=== PATIENT | female | born 1965 | race Caucasian/White ===

== ENCOUNTER 2019-12-24 18:20 | Emergency (ER) | payer SELFPAY ==
[~2019-12-24] VITALS: Ht 152.4 cm; Wt 90.9 kg
[~2019-12-24 18:20] MED LIST: ALBUTEROL INH; AMIT25TA PO; ATOR10TA9 PO; CARI350T14 PO; CLON0.12 PO; CLONIDINE PO; DIVA-61 PO; ECON15CR3 TP; ENAL10TA PO; ENALAPRIL PO; GABA600T7 PO; IBUPROFEN PO; MORPHINE PO; OMEP40CA42 PO; ONDA4TAB7 PO; OXYC1TAB7 PO; SENN1TAB35 PO; SERT100T PO; SOMA PO; ZOLOFT PO; [UNRECOGNIZED DRUG - OTHER] PO
[2019-12-24 18:35] VITALS: BP 182/102
--- NOTE | 2019-12-24 21:07 | NUR ---
PT NOT IN LOBBX AT THIS TIME X 1
--- NOTE | 2019-12-24 21:22 | NUR ---
NIL X 2
--- NOTE | 2019-12-24 21:33 | NUR ---
NIL X 3
== END 2019-12-24 21:36 | disposition left against medical advice (07) ==
LOC: ED 19:20
DX: R60.0 Localized edema (principal); M79.672 Pain in left foot; M79.671 Pain in right foot
CPT/HCPCS: 71045; 93970; 99284

== ENCOUNTER 2020-07-09 22:52 | Inpatient (IN) | payer MEDICAID ==
[~2020-07-09] VITALS: Ht 152.4 cm; Wt 90.1 kg
[~2020-07-09 22:52] MED LIST changes: -ENAL10TA PO; +ENAL10TA9 PO
--- NOTE | 2020-07-09 23:47 | NUR ---
ERP TO BEDSIDE.
--- NOTE | 2020-07-09 23:48 | NUR ---
PT TO ROOM AT [id number]
[2020-07-09 23:51] LABS: BASOPHILS # (AUTO) 0.03 x10^3/uL (0-0.1); BASOPHILS % (AUTO) 0 % (0-1); EOSINOPHILS # (AUTO) 0.13 x10^3/uL (0-0.4); EOSINOPHILS % (AUTO) 1 % (1-7); LYMPHOCYTES % (AUTO) 22 % (22-44); MD NO; MEAN CORPUSCULAR HEMOGLOBIN 27.1 pg (27.0-34.8); MEAN CORPUSCULAR HGB CONC 32.5 g/dL (32.4-35.8); MEAN CORPUSCULAR VOLUME 83.3 fL (80-100); MEAN PLATELET VOLUME 8.2 fL (7.4-10.4); MONOCYTES # (AUTO) 0.63 x10^3/uL (0.2-0.8); MONOCYTES % (AUTO) 7 % (2-9); NEUTROPHILS # (AUTO) 6.53 x10^3/uL (1.8-6.8); NEUTROPHILS % (AUTO) 70 % (42-75); PLATELET COUNT 361 x10^3/uL (130-400); RED BLOOD COUNT 5.02 x10^6/uL (3.82-5.3); RED CELL DISTRIBUTION WIDTH 15.3 % (9.6-15.2)
[2020-07-10] MEDS ORDERED: SODIUM CHLORIDE FLUSH 10ML SYR IVF ONE
[2020-07-10] MEDS ORDERED: ONDANSETRON 2MG/ML, 2ML IVPush ONE
[2020-07-10 00:02] LABS: ALANINE AMINOTRANSFERASE 21 U/L (12-78); ALBUMIN 3.6 g/dL (3.4-5.0); ANION GAP 6 mmol/L (5-15); CALCIUM 9.6 mg/dL (8.5-10.1); CHLORIDE 108 mmol/L (98-107); CREATININE 0.91 mg/dL (0.55-1.02)
[2020-07-10 00:05] LABS: ALKALINE PHOSPHATASE 96 U/L (45-117); BILIRUBIN,TOTAL 0.4 mg/dL (0.2-1.0); TOTAL PROTEIN 7.9 g/dL (6.4-8.2)
--- NOTE | 2020-07-10 00:42 | NUR ---
WORKING TO OBTAIN IV ACCESS.
[2020-07-10 00:46] LABS: TROPONIN I 0.068 ng/mL (0.000-0.045)
[2020-07-10 00:48] LABS: HCT (SEDRATE) 41.9 % (34.6-47.8)
[2020-07-10] MEDS ORDERED: MORPHINE SULFATE 4 MG/ML, 1ML ONE (01:01)
[2020-07-10] MEDS ORDERED: ONDANSETRON 2MG/ML, 2ML ONE (01:01)
--- NOTE | 2020-07-10 01:19 | NUR ---
LATE ENTRY NOTE DUE TO PT CARE: RADHA, RN AND ALICE, RN WELL THIS RN AT BEDSIDE TO ASSESS PORT ACCESS AND IV ACCESS. PT DOES NOT KNOW LAST TIME HER IMPLANTED PORT WAS ACCESSED. THIS RN LOOKED UP POLICIES AND PROCEDURES FOR ACCESSING IMPLANTED PORTS. PT'S PORT ACCESSED PER POLICY. PORT FLUSHED BUT DID NOT GIVE BLOOD RETURN. PT STATED SHE COULD TASTE THE SALINE. SKIN AROUND PORT WAS FOUND TO BE COLD. PORT ACCESS D/C'D AFTER MULTIPLE RNS ASSESSED. ERP MADE AWARE OF DELAY FOR CT UNTIL IV ACCESS CAN BE OBTAINED. ULTRA SOUND AT BEDSIDE IN ATTEMPT TO START US IV. THIS RN ASSESSED FOR EJ ACCESS WELL.
--- NOTE | 2020-07-10 01:38 | NUR ---
PT AMBULATORY TO BATHROOM WITH STANDBY ASSISST.
--- NOTE | 2020-07-10 01:50 | NUR ---
CT DELAY- WAITING FOR NEW IV.
--- NOTE | 2020-07-10 01:58 | NUR ---
US IV ACCESS OBTAINED BY LISA JENKINS. MEDICATION ADMINISTERED VIA IV, IV INFILTRATED. LISA ANTONY AT BEDSIDE WORKING TO OBTAIN IV ACCESS. ERP MADE AWARE.
[2020-07-10] MEDS ORDERED: MORPHINE SULFATE 4 MG/ML, 1ML IVPush PRN ×2 (02:30)
[2020-07-10] MEDS ORDERED: ONDANSETRON 2MG/ML, 2ML IVPush PRN (02:30)
--- NOTE | 2020-07-10 02:38 | NUR ---
REPORT TO FLOOR RN.
[2020-07-10] MEDS ORDERED: ASPIRIN 81 MG TABLET CHEW PO ONE (03:00)
[2020-07-10 03:23] VITALS: BP 129/77
[2020-07-10] MEDS ORDERED: morphine SULFATE 10 MG/ML, 1ML IVPush PRN (03:30)
[2020-07-10] MEDS ORDERED: hydrALAzine 20 MG/ML, 1ML IVPush PRN (03:30)
[2020-07-10] MEDS: ENOXAPARIN 40 MG/0.4 ML SQ SCH (04:00)
[2020-07-10] MEDS: ACETAMINOPHEN 325 MG TABLET PO PRN ×2 (04:00→21:45)
[2020-07-10 05:45] LABS: CHOLESTEROL, TOTAL 140 mg/dL (140-239); HDL CHOL % 33 % (28-40); HDL CHOLESTEROL (DIRECT) 46 mg/dL (40-60); LDL CHOLESTEROL,CALCULATED 82 mg/dL (54-169); LDL/HDL RATIO 1.8 (0.5-3.0); TRIGLYCERIDES 60 mg/dL (50-200); VLDL CHOLESTEROL 12 mg/dL (0-25)
[2020-07-10] MEDS: ASPIRIN 325 MG TABLET EC PO SCH (06:00)
[2020-07-10 06:27] VITALS: BP 104/69
[2020-07-10 06:42] LABS: AMPHETAMINE SCREEN, URINE Positive (Negative); BARBITURATE SCREEN, URINE Negative (Negative); BENZODIAZEPINE SCREEN, URINE Negative (Negative); CANNABINOID SCREEN, URINE Negative (Negative); COCAINE SCREEN, URINE Negative (Negative); METHADONE SCREEN, URINE Negative (Negative); OPIATE SCREEN, URINE Positive (Negative)
[2020-07-10] MEDS: SENNA/DOCUSATE TABLET PO SCH (08:24)
[2020-07-10] MEDS: TOPIRAMATE 100 MG TABLET PO SCH (08:24)
[2020-07-10] MEDS: ONDANSETRON 2MG/ML, 2ML IVPush PRN (08:58)
[2020-07-10] MEDS ORDERED: FURO20TA3 PO (10:49)
[2020-07-10] MEDS ORDERED: CETI10TA32 PO (10:49)
[2020-07-10] MEDS ORDERED: CEPH500T PO (10:49)
[2020-07-10] MEDS ORDERED: MEDR10TA3 PO (10:49)
[2020-07-10] MEDS ORDERED: DOCU100C33 PO (10:49)
[2020-07-10] MEDS ORDERED: POTA20PA25 PO (10:49)
[2020-07-10] MEDS ORDERED: PREG75CA PO (10:49)
[2020-07-10] MEDS ORDERED: VALA500T8 PO (10:49)
[2020-07-10] MEDS ORDERED: DAPA10TA PO (10:49)
[2020-07-10] MEDS ORDERED: TOPI100C6 PO (10:49)
[2020-07-10] MEDS ORDERED: BUDE10.2 INH (10:49)
[2020-07-10 12:15] LABS: TROPONIN I 0.054 ng/mL (0.000-0.045)
[2020-07-10 13:03] VITALS: BP 120/83
[2020-07-10 20:03] VITALS: BP 129/87
[2020-07-10] MEDS ORDERED: BUTALB/APAP/CAFFEINE 50MG/325MG/40MG PO PRN (23:00)
[2020-07-11] MEDS: ENOXAPARIN 40 MG/0.4 ML SQ SCH (02:40)
[2020-07-11 02:45] VITALS: BP 123/77
[2020-07-11 05:14] LABS: BASOPHILS # (AUTO) 0.03 x10^3/uL (0-0.1); BASOPHILS % (AUTO) 1 % (0-1); EOSINOPHILS # (AUTO) 0.13 x10^3/uL (0-0.4); EOSINOPHILS % (AUTO) 2 % (1-7); LYMPHOCYTES # (AUTO) 1.59 x10^3/uL (1-3.4); LYMPHOCYTES % (AUTO) 29 % (22-44); MD NO; MEAN CORPUSCULAR HEMOGLOBIN 27.3 pg (27.0-34.8); MEAN CORPUSCULAR HGB CONC 31.9 g/dL (32.4-35.8); MEAN CORPUSCULAR VOLUME 85.5 fL (80-100); MEAN PLATELET VOLUME 8.4 fL (7.4-10.4); MONOCYTES # (AUTO) 0.37 x10^3/uL (0.2-0.8); MONOCYTES % (AUTO) 7 % (2-9); NEUTROPHILS # (AUTO) 3.47 x10^3/uL (1.8-6.8); NEUTROPHILS % (AUTO) 62 % (42-75); PLATELET COUNT 256 x10^3/uL (130-400); RED BLOOD COUNT 4.41 x10^6/uL (3.82-5.3); RED CELL DISTRIBUTION WIDTH 15.2 % (9.6-15.2)
[2020-07-11 05:32] LABS: CHLORIDE 109 mmol/L (98-107)
[2020-07-11 05:37] LABS: ANION GAP 9 mmol/L (5-15); CALCIUM 8.8 mg/dL (8.5-10.1); CREATININE 0.77 mg/dL (0.55-1.02)
[2020-07-11] MEDS: ASPIRIN 325 MG TABLET EC PO SCH (05:41)
[2020-07-11] MEDS ORDERED: POLYETHYLENE GLYCOL 17 GM PACKET PO ONE (09:00)
[2020-07-11] MEDS: CEFDINIR 300 MG CAPSULE PO SCH ×2 (09:26→20:54)
[2020-07-11] MEDS: DOXYCYCLINE 100MG CAP PO SCH ×2 (09:26→20:54)
[2020-07-11] MEDS: METOCLOPRAMIDE 5 MG/ML, 2ML IVPush SCH ×3 (09:26→20:54)
[2020-07-11] MEDS: FUROSEMIDE 40 MG TABLET PO SCH ×2 (09:27→17:30)
[2020-07-11] MEDS: ENALAPRIL 10 MG TABLET PO SCH (09:27)
[2020-07-11] MEDS: SENNA/DOCUSATE TABLET PO SCH (09:27)
[2020-07-11] MEDS: CARISOPRODOL 350 MG TABLET PO SCH ×2 (09:27→20:54)
[2020-07-11] MEDS: VALACYCLOVIR 500MG TABLET PO SCH ×2 (09:27→20:54)
[2020-07-11] MEDS: SERTRALINE 100MG TABLET PO SCH (09:28)
[2020-07-11] MEDS: PREGABALIN 75 MG CAPSULE PO SCH (09:28)
[2020-07-11] MEDS: TOPIRAMATE 100 MG TABLET PO SCH (09:28)
[2020-07-11 09:30] VITALS: BP 138/75
[2020-07-11] MEDS: ONDANSETRON 2MG/ML, 2ML IVPush PRN (09:36)
[2020-07-11 14:00] VITALS: BP 101/60
[2020-07-11 19:57] VITALS: BP 117/64
[2020-07-11] MEDS: AMITRIPTYLINE 25 MG TABLET PO SCH (20:52)
[2020-07-11] MEDS: DIVALPROEX 500 MG TABLET.DR PO SCH (20:54)
[2020-07-11] MEDS: ATORVASTATIN 10 MG TABLET PO SCH (20:54)
[2020-07-12 02:36] VITALS: BP 125/66
[2020-07-12] MEDS: ENOXAPARIN 40 MG/0.4 ML SQ SCH (03:04)
[2020-07-12] MEDS: METOCLOPRAMIDE 5 MG/ML, 2ML IVPush SCH ×4 (03:04→20:45)
[2020-07-12] MEDS: ASPIRIN 325 MG TABLET EC PO SCH (05:50)
[2020-07-12 07:24] LABS: ANION GAP 7 mmol/L (5-15); CALCIUM 8.5 mg/dL (8.5-10.1); CHLORIDE 107 mmol/L (98-107); CREATININE 0.99 mg/dL (0.55-1.02)
[2020-07-12 07:54] LABS: MEAN CORPUSCULAR HEMOGLOBIN 26.8 pg (27.0-34.8); MEAN CORPUSCULAR HGB CONC 32.1 g/dL (32.4-35.8); MEAN CORPUSCULAR VOLUME 83.6 fL (80-100); MEAN PLATELET VOLUME 9.1 fL (7.4-10.4); PLATELET COUNT 308 x10^3/uL (130-400); RED CELL DISTRIBUTION WIDTH 15.1 % (9.6-15.2)
[2020-07-12 08:00] VITALS: BP 104/56
[2020-07-12 08:06] LABS: BASOPHILS # (AUTO) 0.04 x10^3/uL (0-0.1); BASOPHILS % (AUTO) 0 % (0-1); EOSINOPHILS # (AUTO) 0.07 x10^3/uL (0-0.4); EOSINOPHILS % (AUTO) 1 % (1-7); LYMPHOCYTES # (AUTO) 1.67 x10^3/uL (1-3.4); LYMPHOCYTES % (AUTO) 14 % (22-44); MD SCAN; MONOCYTES # (AUTO) 0.44 x10^3/uL (0.2-0.8); MONOCYTES % (AUTO) 4 % (2-9); NEUTROPHILS # (AUTO) 9.62 x10^3/uL (1.8-6.8); NEUTROPHILS % (AUTO) 81 % (42-75)
[2020-07-12] MEDS: METOPROLOL TARTRATE 25 MG TAB PO SCH (08:41)
[2020-07-12] MEDS: TOPIRAMATE 100 MG TABLET PO SCH (08:42)
[2020-07-12] MEDS: VALACYCLOVIR 500MG TABLET PO SCH ×2 (08:42→20:44)
[2020-07-12] MEDS: DOXYCYCLINE 100MG CAP PO SCH ×2 (08:42→20:44)
[2020-07-12] MEDS: CEFDINIR 300 MG CAPSULE PO SCH ×2 (08:42→20:44)
[2020-07-12] MEDS: ENALAPRIL 10 MG TABLET PO SCH (08:42)
[2020-07-12] MEDS: SERTRALINE 100MG TABLET PO SCH (08:42)
[2020-07-12] MEDS: FUROSEMIDE 20 MG TABLET PO SCH ×2 (08:42→17:31)
[2020-07-12] MEDS: CARISOPRODOL 350 MG TABLET PO SCH ×2 (08:42→20:44)
[2020-07-12] MEDS: PREGABALIN 75 MG CAPSULE PO SCH (08:42)
[2020-07-12] MEDS: SENNA/DOCUSATE TABLET PO SCH (08:42)
[2020-07-12 14:17] VITALS: BP 103/66
[2020-07-12 19:00] VITALS: BP 111/65
[2020-07-12 19:25] LABS: MICROSCOPIC NOT IND
[2020-07-12] MEDS: ATORVASTATIN 10 MG TABLET PO SCH (20:44)
[2020-07-12] MEDS: AMITRIPTYLINE 25 MG TABLET PO SCH (20:47)
[2020-07-12] MEDS: DIVALPROEX 500 MG TABLET.DR PO SCH (20:47)
[2020-07-13 00:27] VITALS: BP 103/68
[2020-07-13] MEDS: ENOXAPARIN 40 MG/0.4 ML SQ SCH (02:51)
[2020-07-13] MEDS: METOCLOPRAMIDE 5 MG/ML, 2ML IVPush SCH ×2 (02:51→09:32)
[2020-07-13 05:48] LABS: ANION GAP 8 mmol/L (5-15); CALCIUM 8.7 mg/dL (8.5-10.1); CHLORIDE 107 mmol/L (98-107); CREATININE 0.92 mg/dL (0.55-1.02)
[2020-07-13] MEDS: ASPIRIN 325 MG TABLET EC PO SCH (05:55)
[2020-07-13 06:30] LABS: BASOPHILS # (AUTO) 0.04 x10^3/uL (0-0.1); BASOPHILS % (AUTO) 1 % (0-1); EOSINOPHILS # (AUTO) 0.17 x10^3/uL (0-0.4); EOSINOPHILS % (AUTO) 2 % (1-7); LYMPHOCYTES # (AUTO) 1.94 x10^3/uL (1-3.4); LYMPHOCYTES % (AUTO) 21 % (22-44); MD NO; MEAN CORPUSCULAR HEMOGLOBIN 26.9 pg (27.0-34.8); MEAN CORPUSCULAR HGB CONC 31.8 g/dL (32.4-35.8); MEAN CORPUSCULAR VOLUME 84.6 fL (80-100); MEAN PLATELET VOLUME 9.1 fL (7.4-10.4); MONOCYTES # (AUTO) 0.52 x10^3/uL (0.2-0.8); MONOCYTES % (AUTO) 6 % (2-9); NEUTROPHILS # (AUTO) 6.46 x10^3/uL (1.8-6.8); NEUTROPHILS % (AUTO) 71 % (42-75); PLATELET COUNT 338 x10^3/uL (130-400); RED BLOOD COUNT 4.36 x10^6/uL (3.82-5.3); RED CELL DISTRIBUTION WIDTH 15.8 % (9.6-15.2)
[2020-07-13 07:15] VITALS: BP 107/64
[2020-07-13] MEDS: METOPROLOL TARTRATE 25 MG TAB PO SCH (09:32)
[2020-07-13] MEDS: TOPIRAMATE 100 MG TABLET PO SCH (09:32)
[2020-07-13] MEDS: VALACYCLOVIR 500MG TABLET PO SCH (09:32)
[2020-07-13] MEDS: CARISOPRODOL 350 MG TABLET PO SCH (09:32)
[2020-07-13] MEDS: SENNA/DOCUSATE TABLET PO SCH (09:32)
[2020-07-13] MEDS: CEFDINIR 300 MG CAPSULE PO SCH (09:32)
[2020-07-13] MEDS: PREGABALIN 75 MG CAPSULE PO SCH (09:33)
[2020-07-13] MEDS: FUROSEMIDE 20 MG TABLET PO SCH (09:33)
[2020-07-13] MEDS: DOXYCYCLINE 100MG CAP PO SCH (09:33)
[2020-07-13] MEDS: ENALAPRIL 10 MG TABLET PO SCH (09:33)
[2020-07-13] MEDS: SERTRALINE 100MG TABLET PO SCH (09:33)
[2020-07-13] MEDS ORDERED: FURO20TA3 PO (09:45)
[2020-07-13] MEDS ORDERED: CEFD300C37 PO (09:45)
[2020-07-13] MEDS ORDERED: DOXY100C2 PO (09:45)
[2020-07-13] MEDS ORDERED: METO25TA35 PO (12:19)
== END 2020-07-13 12:50 | disposition home or self-care (01) | DRG 194 ==
LOC: ED 07-10 02:05 → 5SO 07-10 03:04 → ED 07-10 03:27 → 5SO 07-10 03:27 → DCLOUNGE 07-13 12:46
PROVIDERS: ADMIT Family Medicine; ATTEND Family Medicine
DX: I11.0 Hypertensive heart disease with heart failure (principal); L03.115 Cellulitis of right lower limb; L03.116 Cellulitis of left lower limb; M79.7 Fibromyalgia; Z82.49 Family history of ischemic heart disease and other diseases of the circulatory system; K21.9 Gastro-esophageal reflux disease without esophagitis; Z90.710 Acquired absence of both cervix and uterus; Z99.81 Dependence on supplemental oxygen; Z85.43 Personal history of malignant neoplasm of ovary; K59.09 Other constipation; J45.909 Unspecified asthma, uncomplicated; I50.43 Acute on chronic combined systolic (congestive) and diastolic (congestive) heart failure; I25.2 Old myocardial infarction; E11.21 Type 2 diabetes mellitus with diabetic nephropathy; J96.10 Chronic respiratory failure, unspecified whether with hypoxia or hypercapnia; I87.8 Other specified disorders of veins; I48.91 Unspecified atrial fibrillation; G47.33 Obstructive sleep apnea (adult) (pediatric); G43.909 Migraine, unspecified, not intractable, without status migrainosus; F43.10 Post-traumatic stress disorder, unspecified; F31.9 Bipolar disorder, unspecified; F17.200 Nicotine dependence, unspecified, uncomplicated; E78.5 Hyperlipidemia, unspecified; E11.51 Type 2 diabetes mellitus with diabetic peripheral angiopathy without gangrene; E11.40 Type 2 diabetes mellitus with diabetic neuropathy, unspecified
CPT/HCPCS: 36415; 71045; 71046; 80048; 80053; 80061; 80307; 81003; 83036; 83605; 83735; 83880; 84443; 84484; 85025; 85651; 86140; 87040; 93005; 93306; 93356; 93970; 96374; 96375; 99291; G0378; J1650; J2405; J2270; J2765